=== PATIENT | male | born 1995 | race Caucasian/White ===

== ENCOUNTER 2017-11-01 19:57 | Emergency (ER) | payer OTHER ==
[2017-11-01] MEDS: diazePAM 5 MG TAB PO (22:11)
[2017-11-01] MEDS: KETOROLAC TROMETHAMINE 10 MG TAB PO (22:11)
== END 2017-11-01 23:40 | disposition home or self-care (01) ==
LOC: M ED 19:57
DX: S00.03XA Contusion of scalp, initial encounter (principal); V49.49XA Driver injured in collision with other motor vehicles in traffic accident, initial encounter; Y92.410 Unspecified street and highway as the place of occurrence of the external cause
CPT/HCPCS: 70450

== ENCOUNTER 2018-01-20 10:20 | Emergency (ER) | payer OTHER ==
[2018-01-20] MEDS: METOCLOPRAMIDE 10 MG TAB PO (10:43)
== END 2018-01-20 11:29 | disposition home or self-care (01) ==
LOC: M ED 10:20
DX: S06.0X1A Concussion with loss of consciousness of 30 minutes or less, initial encounter (principal); S16.1XXA Strain of muscle, fascia and tendon at neck level, initial encounter; W00.0XXA Fall on same level due to ice and snow, initial encounter; Y92.89 Other specified places as the place of occurrence of the external cause; R11.0 Nausea
CPT/HCPCS: 70450